=== PATIENT | male | born 1935 | race Caucasian/White ===

== ENCOUNTER 2017-05-27 08:39 | Emergency (ER) | payer MEDICARE, BC ==
[2017-05-27] MEDS ORDERED: cloNIDine 0.1 MG Tab PO ONE (09:55)
--- NOTE | 2017-05-27 10:26 | EDM.PDOC ---
ED HPI GENERAL MEDICAL PROBLEM - General Stated Complaint: nose bleed Time Seen by Provider: 05/27/17 09:30 Source of Information: Reports: Patient History Limitations: Reports: No Limitations - History of Present Illness INITIAL COMMENTS - FREE TEXT/NARRATIVE: According to patient he walking doing his morning walk today and suddenly started to bleed from his right nostril. He claims he did not pick his nose. He did pinch the nose for few minutes and it would not stop. hence he came into emergency room. Pt claims that he has had small nasal bleeds in the past, which have stopped with nasal pressure. No headache. no nausea or vomiting. He has not taken any OTC medications. Onset: Today Onset Date: 05/27/17 Onset Time: 07:00 Associated Symptoms: Denies: Confusion, Chest Pain, Fever/Chills, Headaches, Nausea/Vomiting, Rash, Seizure, Shortness of Breath, Syncope, Weakness - Related Data Allergies Allergy/AdvReac Type Severity Reaction Status Date / Time No Known Allergies Allergy Verified 05/27/17 09:52 Home Meds: Home Meds Simvastatin [Zocor] 40 mg PO BEDTIME 03/14/14 [History] Famotidine [Acid Customs Appraiser] 10 mg PO DAILY 05/27/17 [History] Social & Family History - Tobacco Use Second Hand Smoke Exposure: No - Alcohol Use Days Per Week of Alcohol Use: 0 - Recreational Drug Use Recreational Drug Use: No ED ROS GENERAL - Review of Systems Review Of Systems: See Below Constitutional: Denies: Fever, Malaise HEENT: Reports: Nosebleed. Denies: Ear Discharge, Ear Pain, Eye Discharge, Nose Pain, Rhinitis, Throat Pain, Throat Swelling Respiratory: Denies: Shortness of Breath, Wheezing, Cough, Sputum Cardiovascular: Denies: Chest Pain, Lightheadedness GI/Abdominal: Denies: Abdominal Pain, Nausea, Vomiting Musculoskeletal: Denies: Joint Pain, Joint Swelling Skin: Denies: Pruritis, Rash Neurological: Denies: Confusion, Dizziness, Headache, Numbness, Tingling, Weakness ED EXAM, GENERAL - Physical Exam Exam: See Below Exam Limited By: No Limitations General Appearance: Alert, WD/WN, No Apparent Distress Eye Exam: Bilateral Eye: EOMI, PERRL Ears: Normal External Exam, Normal Canal, Hearing Grossly Normal, Normal TMs Ear Exam: Bilateral Ear: Auricle Normal, Canal Normal, TM normal Nose: Other (there is active bleeding seen in the right nostril and into the posterior pharynx. On pinching the nostril for 2 minutes. there is still bleeding from the psoterior pharynx.) Throat/Mouth: Normal Lips, Normal Teeth, Normal Gums Head: Atraumatic, Normocephalic Neck: Normal Inspection, Supple, Non-Tender, Full Range of Motion Respiratory/Chest: No Respiratory Distress, Lungs Clear, Normal Breath Sounds, No Accessory Muscle Use, Chest Non-Tender Cardiovascular: Normal Peripheral Pulses, Regular Rate, Rhythm, No Edema, No Gallop, No JVD, No Murmur, No Rub GI/Abdominal: Normal Bowel Sounds, Soft, Non-Tender, No Organomegaly, No Distention, No Abnormal Bruit, No Mass Extremities: Normal Inspection, Normal Range of Motion, Non-Tender, Normal Capillary Refill, No Pedal Edema Neurological: Alert, Oriented, CN II-XII Intact, Normal Cognition, Normal Gait, Normal Reflexes, No Motor/Sensory Deficits Course - Vital Signs Text/Narrative:: Pt's Blood pressure is 190/110mmhg. he claims he does not have history of hypertension. The only medication her takes is zocor for hyperlipidemia. he is not under stress. The cause of his nasal bleed does appear like his elevated blood pressure. Pt has had small nasal bleeds in the past, could be intermittent elevation of blood pressure. It does appear like there is an element of anxiety, here. I have applied anterior packing with rhino-pack. Reassured that he will have a uncomfortable feeling with the packing. return to emergency room tomorrow for removal of the pack. Meanwhile his CMP appears normal other than his creat of 1.4 and GFR of 48. Pt claims his recent GFR was at 48ml, so appears unchanged. His CBC, PT and PTT are normal. This does not seem to be related to bleeding disorder. Pt's BP is 162/92mmhg, coming down. Pt has had several episodes of elevated blood pressures in the past. Atleast 3 times, and the highest was 247mmhg systolic. This patient does have hypertension. Will start him on amlodipine 5mg Daily and reevaluate him tomorrow. Last Recorded V/S: Last Vital Signs Temp 98.7 F 09/03/17 09:32 Pulse 81 05/27/17 10:17 Resp 18 05/27/17 10:12 BP 155/99 H 05/27/17 10:17 Pulse Ox 98 05/27/17 09:32 - Orders/Labs/Meds Orders: Active Orders 24 hr Category Date Time Status COMPREHENSIVE METABOLIC PN,CMP [CHEM] Stat Lab 05/27/17 09:55 Ordered INR,PT,PROTHROMBIN TIME [COAG] Stat Lab 05/27/17 09:55 Ordered PTT,PARTIAL THROMBOPLSTIN TIME [COAG] Stat Lab 05/27/17 09:55 Ordered Meds: Medications Discontinued Medications Generic Name Dose Route Start Last Admin Trade Name Christie PRN Reason Stop Dose Admin Clonidine HCl 0.1 mg 05/27/17 09:55 Catapres PO 05/27/17 09:56 ONETIME ONE Departure - Departure Time of Disposition: 10:50 Disposition: Home, Self-Care 01 Condition: Fair Clinical Impression: Epistaxis, Elevated BP without diagnosis of hypertension - Discharge Information Referrals: PCP,None [Primary Care Provider] - Additional Instructions: Pt's Blood pressure is 190/110mmhg. he claims he does not have history of hypertension. The only medication her takes is zocor for hyperlipidemia. he is not under stress. The cause of his nasal bleed does appear like his elevated blood pressure. Pt has had small nasal bleeds in the past, could be intermittent elevation of blood pressure. It does appear like there is an element of anxiety, here. I have applied anterior packing with rhino-pack. Reassured that he will have a uncomfortable feeling with the packing. return to emergency room tomorrow for removal of the pack. Meanwhile his CMP appears normal other than his creat of 1.4 and GFR of 48. Pt claims his recent GFR was at 48ml, so appears unchanged. His CBC, PT and PTT are normal. This does not seem to be related to bleeding disorder. Pt's BP is 162/92mmhg, coming down. Pt has had several episodes of elevated blood pressures in the past. Atleast 3 times, and the highest was 247mmhg systolic. This patient does have hypertension. Will start him on amlodipine 5mg Daily and reevaluate him tomorrow. - Problem List & Annotations (1) Elevated BP without diagnosis of hypertension SNOMED Code(s): 981822438 Code(s): R03.0 - ELEVATED BLOOD-PRESSURE READING, W/O DIAGNOSIS OF HTN Status: Acute Current Visit: Yes (2) Epistaxis SNOMED Code(s): 752666425, 003313941 Code(s): R04.0 - EPISTAXIS Status: Acute Current Visit: Yes - Problem List Review Problem List Initiated/Reviewed/Updated: Yes - My Orders Last 24 Hours: My Active Orders 05/27/17 09:55 COMPREHENSIVE METABOLIC PN,CMP [CHEM] Stat INR,PT,PROTHROMBIN TIME [COAG] Stat PTT,PARTIAL THROMBOPLSTIN TIME [COAG] Stat - Assessment/Plan Last 24 Hours: My Active Orders 05/27/17 09:55 COMPREHENSIVE METABOLIC PN,CMP [CHEM] Stat INR,PT,PROTHROMBIN TIME [COAG] Stat PTT,PARTIAL THROMBOPLSTIN TIME [COAG] Stat Assessment:: Epistaxis Elevated blood pressure- hypertension Plan: Pt's Blood pressure is 190/110mmhg. he claims he does not have history of hypertension. The only medication her takes is zocor for hyperlipidemia. he is not under stress. The cause of his nasal bleed does appear like his elevated blood pressure. Pt has had small nasal bleeds in the past, could be intermittent elevation of blood pressure. It does appear like there is an element of anxiety, here. I have applied anterior packing with rhino-pack. Reassured that he will have a uncomfortable feeling with the packing. return to emergency room tomorrow for removal of the pack. Meanwhile his CMP appears normal other than his creat of 1.4 and GFR of 48. Pt claims his recent GFR was at 48ml, so appears unchanged. His CBC, PT and PTT are normal. This does not seem to be related to bleeding disorder. Pt's BP is 162/92mmhg, coming down. Pt has had several episodes of elevated blood pressures in the past. Atleast 3 times, and the highest was 247mmhg systolic. This patient does have hypertension. Will start him on amlodipine 5mg Daily and reevaluate him tomorrow.
[2017-05-27] MEDS ORDERED: amLODIPine 5 MG Tab ONE (10:45)
[2017-05-27 11:03] VITALS: BP 155/97
== END 2017-05-27 10:55 | disposition home or self-care (01) ==
LOC: LB.ED 08:39
DX: R04.0 Epistaxis (principal); R03.0 Elevated blood-pressure reading, without diagnosis of hypertension; Z79.899 Other long term (current) drug therapy
CPT/HCPCS: 30901; 36415; 80053; 85025; 85610; 85730; 99282; 99283; A9270

== ENCOUNTER 2017-05-28 10:11 | Emergency (ER) | payer MEDICARE, BC ==
[2017-05-28] MEDS ORDERED: Oxymetazoline 0.05% Nasal Spray 15 ML Bottle ONE (11:20)
--- NOTE | 2017-05-28 12:41 | EDM.PDOC ---
ED HPI GENERAL MEDICAL PROBLEM - General Time Seen by Provider: 05/28/17 10:30 Source of Information: Reports: Patient History Limitations: Reports: No Limitations - History of Present Illness INITIAL COMMENTS - FREE TEXT/NARRATIVE: Pt has right sided acute epistaxis with elevated blood pressure yesterday. Pt has rhino-rocket placed to stop bleeding and started on amlodipine yesterday. Pt has been monitoring his BP and has been around 140-150/80-90mmhg. He claims he had headache today morning more of dull achy type. No other complaints. he is here for followup and to have the rhino-rocket removed. - Related Data Allergies Allergy/AdvReac Type Severity Reaction Status Date / Time No Known Allergies Allergy Verified 05/27/17 09:52 Home Meds: Home Meds Simvastatin [Zocor] 40 mg PO BEDTIME 03/14/14 [History] Famotidine [Acid Bulb Tester] 10 mg PO DAILY 05/27/17 [History] Past Medical History HEENT History: Reports: Impaired Vision, Sinusitis Cardiovascular History: Reports: High Cholesterol, Hypertension Genitourinary History: Reports: Chronic Renal Insuffiency Psychiatric History: Reports: Anxiety Social & Family History - Tobacco Use Second Hand Smoke Exposure: No - Alcohol Use Days Per Week of Alcohol Use: 0 - Recreational Drug Use Recreational Drug Use: No ED ROS GENERAL - Review of Systems Review Of Systems: See Below Constitutional: Denies: Fever, Chills, Night Sweats, Diaphoresis HEENT: Denies: Nosebleed, Nose Pain, Rhinitis, Throat Pain, Throat Swelling, Vision Change Respiratory: Denies: Shortness of Breath, Cough, Sputum Cardiovascular: Denies: Chest Pain, Lightheadedness GI/Abdominal: Denies: Abdominal Pain, Nausea, Vomiting : Denies: Dysuria, Frequency ED EXAM, GENERAL - Physical Exam Exam: See Below Exam Limited By: No Limitations General Appearance: Alert, WD/WN, No Apparent Distress Eye Exam: Bilateral Eye: EOMI Ears: Normal External Exam, Normal Canal, Hearing Grossly Normal, Normal TMs Ear Exam: Bilateral Ear: Auricle Normal, Canal Normal, TM normal Nose: Normal Mucosa, No Blood, Other (Rhino-rocket in palce) Throat/Mouth: Normal Inspection, Normal Lips, Normal Teeth, Normal Gums, Normal Oropharynx, Normal Voice, No Airway Compromise Head: Atraumatic, Normocephalic Neck: Normal Inspection, Supple, Non-Tender, Full Range of Motion Respiratory/Chest: No Respiratory Distress, Lungs Clear, Normal Breath Sounds, No Accessory Muscle Use, Chest Non-Tender Cardiovascular: Normal Peripheral Pulses, Regular Rate, Rhythm, No Edema, No Gallop, No JVD, No Murmur, No Rub Course - Vital Signs Text/Narrative:: the rhinorocket was removed. Pt has mild oozing of the serous drainage from the posterior pharynx. Not acute gushing bleed, but slow oozing. I did spray the afrin nasal spray 2 sprays and repeated in 5 minutes. the bleeding completely stopped. Posterior pharynx clear. I have advised patient to continue amlodipine. Advised to use afrin 2 sprays to left nostril every 2-4 hrs as needed for bleed. Advised to followup with his PCP next week for his Blood pressure workup. Departure - Departure Time of Disposition: 11:00 Disposition: Home, Self-Care 01 Condition: Fair Clinical Impression: Epistaxis, Elevated BP without diagnosis of hypertension - Discharge Information Referrals: PCP,None [Primary Care Provider] - - Problem List & Annotations (1) Epistaxis SNOMED Code(s): 423068393, 681285283 Code(s): R04.0 - EPISTAXIS Status: Acute Current Visit: Yes (2) Elevated BP without diagnosis of hypertension SNOMED Code(s): 167325491 Code(s): R03.0 - ELEVATED BLOOD-PRESSURE READING, W/O DIAGNOSIS OF HTN Status: Acute Current Visit: Yes - Problem List Review Problem List Initiated/Reviewed/Updated: Yes - Assessment/Plan Assessment:: Resolved epistaxis, Rhinrocket removed. HTN improving Plan: the rhinorocket was removed. Pt has mild oozing of the serous drainage from the posterior pharynx. Not acute gushing bleed, but slow oozing. I did spray the afrin nasal spray 2 sprays and repeated in 5 minutes. the bleeding completely stopped. Posterior pharynx clear. I have advised patient to continue amlodipine. Advised to use afrin 2 sprays to left nostril every 2-4 hrs as needed for bleed. Advised to followup with his PCP next week for his Blood pressure workup.
[2017-05-28 14:18] VITALS: BP 160/107
== END 2017-05-28 11:40 | disposition home or self-care (01) ==
LOC: LB.ED 10:11
DX: R04.0 Epistaxis (principal); R03.0 Elevated blood-pressure reading, without diagnosis of hypertension; E78.00 Pure hypercholesterolemia, unspecified; I12.9 Hypertensive chronic kidney disease with stage 1 through stage 4 chronic kidney disease, or unspecified chronic kidney disease; N18.9 Chronic kidney disease, unspecified; F41.9 Anxiety disorder, unspecified; Z79.899 Other long term (current) drug therapy
CPT/HCPCS: 99283; A9270; 99282

== ENCOUNTER 2023-06-03 12:58 | Emergency (ER) | payer BC, MEDICARE ==
[2023-06-03 15:51] VITALS: BP 122/71; PULSE 90
== END 2023-06-03 14:03 | disposition home or self-care (01) ==
LOC: LB.ED 12:58
DX: R04.0 Epistaxis (principal); E78.00 Pure hypercholesterolemia, unspecified; I10 Essential (primary) hypertension; Z79.82 Long term (current) use of aspirin; Z79.899 Other long term (current) drug therapy
CPT/HCPCS: 30903; 99283